=== PATIENT | male | born 1995 | race Caucasian/White ===

== ENCOUNTER 2017-01-04 22:06 | Emergency (ER) | payer MEDICAID ==
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
== END 2017-01-05 08:24 ==
LOC: JP.ED 22:06
DX: F32.9 Major depressive disorder, single episode, unspecified (principal)
CPT/HCPCS: 36415; 80053; 80305; 81001; 85025; 99284; G0480; 99285